=== PATIENT | male | born 1955 | race Caucasian/White ===

== ENCOUNTER 2017-07-08 13:35 | Observation (INO) | payer BC ==
[2017-07-08] MEDS ORDERED: Nitroglycerin 0.4 MG Tab.SL SL PRN (13:36)
--- NOTE | 2017-07-08 13:38 | EDM.PDOC ---
ED HPI GENERAL MEDICAL PROBLEM - General Stated Complaint: CHEST PAIN Time Seen by Provider: 07/08/17 13:36 - History of Present Illness INITIAL COMMENTS - FREE TEXT/NARRATIVE: HISTORY AND PHYSICAL: History of present illness: Patient is 61-year-old white male history coronary artery disease including coronary bypass surgery who presents with midsternal chest pain that started after he was shoveling with associated shortness of breath he denies diaphoresis nausea or vomiting his pain is improved dramatically since having stopped shelving but he still does have some mild sternal chest discomfort he also still complains of mild shortness of breath. Review of systems: As per history of present illness and below otherwise all systems reviewed and negative. Past medical history: As per history of present illness and as reviewed below otherwise noncontributory. Surgical history: As per history of present illness and as reviewed below otherwise noncontributory. Social history: No reported history of drug or alcohol abuse. Family history: As per history of present illness and as reviewed below otherwise noncontributory. Physical exam: HEENT: Atraumatic, normocephalic, pupils reactive, negative for conjunctival pallor or scleral icterus, mucous membranes moist, throat clear, neck supple, nontender, trachea midline. Lungs: Clear to auscultation, breath sounds equal bilaterally, chest nontender. Heart: S1S2, regular, negative for clicks, rubs, or JVD. Abdomen: Soft, nondistended, nontender. Negative for masses or hepatosplenomegaly. Negative for costovertebral tenderness. Pelvis: Stable nontender. Genitourinary: Deferred. Rectal: Deferred. Extremities: Atraumatic, negative for cords or calf pain. Neurovascular unremarkable. Neuro: Awake, alert, oriented. Cranial nerves II through XII unremarkable. Cerebellum unremarkable. Motor and sensory unremarkable throughout. Exam nonfocal. Diagnostics: CBC CMP troponin PT/INR BNP chest x-ray EKG Therapeutics: IV O2 monitor sublingual nitroglycerin patient is ready taken aspirin this a.m. Impression: #1 chest pain #2 history coronary artery disease Definitive disposition and diagnosis as appropriate pending reevaluation and review of above. - Related Data Allergies Allergy/AdvReac Type Severity Reaction Status Date / Time No Known Allergies Allergy Verified 07/08/17 13:51 Home Meds: Home Meds Allopurinol [Zyloprim] 100 mg PO DAILY 12/12/15 [History] Indomethacin [Indocin] 50 mg PO BIDMEALS 12/12/15 [History] Metoprolol Succinate [Toprol XL] 25 mg PO DAILY 12/12/15 [History] atorvaSTATin [Lipitor] 80 mg PO DAILY 12/12/15 [History] Past Medical History Cardiovascular History: Reports: High Cholesterol, Hypertension Neurological History: Reports: CVA - Past Surgical History Musculoskeletal Surgical History: Reports: Knee Replacement, Other (See Below) Social & Family History - Family History Family Medical History: Noncontributory - Tobacco Use Smoking Status *Q: Current Every Day Smoker Years of Tobacco use: 45 Packs/Tins Daily: 0.5 - Recreational Drug Use Recreational Drug Use: No ED ROS GENERAL - Review of Systems Review Of Systems: ROS reveals no pertinent complaints other than HPI. ED EXAM, GENERAL - Physical Exam Exam: See Below (See dictation) Course - Vital Signs Last Recorded V/S: Last Vital Signs Temp 37.0 C 07/08/17 13:35 Pulse 97 07/08/17 14:01 Resp 18 07/08/17 14:01 BP 136/91 H 07/08/17 14:01 Pulse Ox 98 07/08/17 14:01 - Orders/Labs/Meds Orders: Active Orders 24 hr Category Date Time Status Cardiac Monitoring [RC] . DIRECTED Care 07/08/17 13:37 Active EKG Documentation Completion [RC] STAT Care 07/08/17 13:36 Active Oxygen Therapy, ED [RC] ASDIRECTED Care 07/08/17 13:37 Active Nitroglycerin [Nitrostat] Med 07/08/17 13:36 Active 0.4 mg SL Q5M PRN Medication Orders Nitroglycerin (Nitrostat) 0.4 mg SL Q5M PRN PRN Reason: Chest Pain Last Admin: 07/08/17 13:56 Dose: 0.4 mg Labs: Laboratory Tests 07/08/17 07/08/17 07/08/17 Range/Units 13:14 13:45 13:45 WBC 10.28 (4.0-11.0) K/uL RBC 4.86 (4.50-5.90) M/uL Hgb 14.7 (13.0-17.0) g/dL Hct 43.3 (38.0-50.0) % MCV 89.1 (80.0-98.0) fL MCH 30.2 (27.0-32.0) pg MCHC 33.9 (31.0-37.0) g/dL RDW Std Deviation 44.8 (28.0-62.0) fl RDW Coeff of [place] 14 (11.0-15.0) % Plt Count 242 (150-400) K/uL MPV 10.30 (7.40-12.00) fL Neut % (Auto) 64.0 (48.0-80.0) % Lymph % (Auto) 25.9 (16.0-40.0) % [place] % (Auto) 7.4 (0.0-15.0) % Eos % (Auto) 1.8 (0.0-7.0) % Baso % (Auto) 0.9 (0.0-1.5) % Neut # (Auto) 6.6 H (1.4-5.7) K/uL Lymph # (Auto) 2.7 H (0.6-2.4) K/uL [place] # (Auto) 0.8 (0.0-0.8) K/uL Eos # (Auto) 0.2 (0.0-0.7) K/uL Baso # (Auto) 0.1 (0.0-0.1) K/uL Nucleated RBC % 0.0 /100WBC Nucleated RBCs # 0 K/uL INR Sodium 143 (136-146) mmol/L Potassium 4.1 (3.5-5.1) mmol/L Chloride 110 (98-110) mmol/L Carbon Dioxide 22 (21-31) mmol/L BUN 20 (6.0-23.0) mg/dL Creatinine 1.7 H (0.6-1.5) mg/dL Est Cr Clr Drug Dosing 45.05 mL/min Estimated GFR (MDRD) 41.0 ml/min Glucose 91 (60-110) mg/dL Calcium 9.8 (8.8-10.8) mg/dL Total Bilirubin 0.7 (0.1-1.5) mg/dL AST 23 (5-40) IU/L ALT 25 (8-54) IU/L Alkaline Phosphatase 105 (40-150) Troponin I < 0.10 (0.0-0.29) NG/ML B-Natriuretic Peptide 42 (<100) PG/ML Total Protein 7.4 (6.0-8.0) g/dL Albumin 4.5 (3.4-4.8) g/dL Globulin 2.9 (2.0-3.5) g/dL Albumin/Globulin Ratio 1.6 (1.3-2.8) 07/08/17 Range/Units 13:45 WBC (4.0-11.0) K/uL RBC (4.50-5.90) M/uL Hgb (13.0-17.0) g/dL Hct (38.0-50.0) % MCV (80.0-98.0) fL MCH (27.0-32.0) pg MCHC (31.0-37.0) g/dL RDW Std Deviation (28.0-62.0) fl RDW Coeff of [place] (11.0-15.0) % Plt Count (150-400) K/uL MPV (7.40-12.00) fL Neut % (Auto) (48.0-80.0) % Lymph % (Auto) (16.0-40.0) % [place] % (Auto) (0.0-15.0) % Eos % (Auto) (0.0-7.0) % Baso % (Auto) (0.0-1.5) % Neut # (Auto) (1.4-5.7) K/uL Lymph # (Auto) (0.6-2.4) K/uL [place] # (Auto) (0.0-0.8) K/uL Eos # (Auto) (0.0-0.7) K/uL Baso # (Auto) (0.0-0.1) K/uL Nucleated RBC % /100WBC Nucleated RBCs # K/uL INR 0.97 Sodium (136-146) mmol/L Potassium (3.5-5.1) mmol/L Chloride (98-110) mmol/L Carbon Dioxide (21-31) mmol/L BUN (6.0-23.0) mg/dL Creatinine (0.6-1.5) mg/dL Est Cr Clr Drug Dosing mL/min Estimated GFR (MDRD) ml/min Glucose (60-110) mg/dL Calcium (8.8-10.8) mg/dL Total Bilirubin (0.1-1.5) mg/dL AST (5-40) IU/L ALT (8-54) IU/L Alkaline Phosphatase (40-150) Troponin I (0.0-0.29) NG/ML B-Natriuretic Peptide (<100) PG/ML Total Protein (6.0-8.0) g/dL Albumin (3.4-4.8) g/dL Globulin (2.0-3.5) g/dL Albumin/Globulin Ratio (1.3-2.8) Meds: Medications Generic Name Dose Route Start Last Admin Trade Name Freq PRN Reason Stop Dose Admin Nitroglycerin 0.4 mg 07/08/17 13:36 07/08/17 13:56 Nitrostat SL 0.4 mg Q5M PRN Administration Chest Pain Discontinued Medications Generic Name Dose Route Start Last Admin Trade Name Freq PRN Reason Stop Dose Admin Aspirin 324 mg 07/08/17 13:49 07/08/17 13:56 Aspirin PO 07/08/17 13:50 324 mg ONETIME ONE Administration Departure - Departure Time of Disposition: 14:39 Disposition: Refer to Observation Condition: Good Clinical Impression: Chest pain - Discharge Information
[2017-07-08] MEDS ORDERED: Aspirin 81 MG Tab.Chew PO ONE (13:49)
--- NOTE | 2017-07-08 14:25 | CR ---
EXAMINATION: Portable chest radiograph. HISTORY: Chest pain. Comparison: 12/12/2015. FINDINGS: The trachea is midline. The cardiomediastinal silhouette is within normal limits. No pulmonary infilt rates, effusions or pneumothorax. Mild interstitial prominence most prominent within the left lung ba se, grossly unchanged. Osseous structures appear unremarkable. Median sternotomy wires are noted. IMPRESSION: No definite acute cardiopulmonary process.
[2017-07-08 14:26] LABS: CHLORIDE,CL 110 mmol/L (98-110); SODIUM,NA 143 mmol/L (136-146)
[2017-07-08] MEDS ORDERED: Sodium Chloride 0.9% 10 ML Syringe FLUSH PRN (16:25)
[2017-07-08] MEDS ORDERED: Acetaminophen 325 MG Tab PO PRN (16:25)
[2017-07-08] MEDS ORDERED: Morphine 2 MG/ML Syringe IVPUSH PRN (16:25)
[2017-07-08] MEDS ORDERED: Sodium Chloride 0.9% 2.5 ML Syringe FLUSH PRN (16:25)
[2017-07-08] MEDS ORDERED: Ondansetron 4 MG/2 ML SDV IVPUSH PRN (16:25)
--- NOTE | 2017-07-08 16:51 | PCM.HP ---
H&P History of Present Illness - General Date of Service: 07/08/17 Admit Problem/Dx: Admission Diagnosis/Problem Admission Diagnosis/Problem Chest pain Source of Information: Patient History Limitations: Reports: No Limitations - History of Present Illness Initial Comments - Free Text/Narative: This is a 61-year-old male who is presenting secondary to acute chest pain that started this morning. 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 Patient became concerned secondary to the fact that he had a quadruple bypass 3 years back secondary to an [place]. Patient has not had any NV related concerns since the CABG. He follows up with his primary care physician in [place] time male. Patient currently is not having any chest pain. Patient has not had any chest pain on exertion prior to this event. Patient stated that along with the chest pain he was having difficulty breathing/ shortness of breath which became concerning. Patient in the ER had troponins drawn 1 which is negative, he was given Nitrostat for symptomatic pain control. Patient is being admitted to observation secondary to ACS rule out. Onset of Symptoms: Reports: Today, Sudden chest Pain Score (Numeric/FACES): 0 - Related Data Allergies/Adverse Reactions: Allergies Allergy/AdvReac Type Severity Reaction Status Date / Time No Known Allergies Allergy Verified 07/08/17 13:51 Home Medications: Home Meds Allopurinol [Zyloprim] 100 mg PO DAILY 12/12/15 [History] Indomethacin [Indocin] 50 mg PO BIDMEALS 12/12/15 [History] Metoprolol Succinate [Toprol XL] 25 mg PO DAILY 12/12/15 [History] atorvaSTATin [Lipitor] 80 mg PO DAILY 12/12/15 [History] Aspirin [Children's Aspirin] 81 mg PO DAILY 07/08/17 [History] Past Medical History Cardiovascular History: Reports: Bypass, CAD, High Cholesterol, Hypertension Neurological History: Reports: CVA - Infectious Disease History Infectious Disease History: Reports: None - Past Surgical History HEENT Surgical History: Reports: None Other HEENT Surgeries/Procedures: salivary gland removal GI Surgical History: Reports: None Endocrine Surgical History: Reports: None Musculoskeletal Surgical History: Reports: Knee Replacement, Other (See Below) Social & Family History - Family History Family Medical History: Noncontributory HEENT: Reports: None - Tobacco Use Smoking Status *Q: Former Smoker Years of Tobacco use: 45 Packs/Tins Daily: 0.5 Used Tobacco, but Quit: Yes Month Tobacco Last Used: 2 years ago Second Hand Smoke Exposure: No - Caffeine Use Caffeine Use: Reports: Coffee - Recreational Drug Use Recreational Drug Use: No H&P Review of Systems - Review of Systems: Review Of Systems: ROS reveals no pertinent complaints other than HPI. General: Reports: No Symptoms HEENT: Reports: No Symptoms Cardiovascular: Reports: Chest Pain Gastrointestinal: Reports: No Symptoms Musculoskeletal: Reports: No Symptoms Skin: Reports: No Symptoms Exam - Exam Exam: See Below - Vital Signs Vital Signs: Last Vital Signs Temp 37.0 C 07/08/17 13:35 Pulse 88 07/08/17 15:02 Resp 18 07/08/17 15:02 BP 144/95 H 07/08/17 15:02 Pulse Ox 96 07/08/17 15:02 Weight: 90.1 kg - Exam Quality Assessment: Supplemental Oxygen General: Alert, Oriented, Cooperative HEENT: Conjunctiva Clear Neck: Supple Lungs: Clear to Auscultation, Normal Respiratory Effort Cardiovascular: Regular Rate, Regular Rhythm, Other GI/Abdominal Exam: Normal Bowel Sounds Extremities: Normal Inspection, Normal Range of Motion - Patient Data Result Diagrams: 07/08/17 13:14 07/08/17 13:45 *Q Meaningful Use (ADM) - VTE *Q VTE Criteria *Q: - Stroke *Q Stroke Criteria *Q: - AMI *Q AMI Criteria *Q: - Problem List (1) Chest pain SNOMED Code(s): 41544265 ICD Code: R07.9 - CHEST PAIN, UNSPECIFIED Status: Acute Current Visit: Yes (2) Acute coronary syndrome SNOMED Code(s): 520984844 ICD Code: I24.9 - ACUTE ISCHEMIC HEART DISEASE, UNSPECIFIED Status: Acute Current Visit: No Problem List Initiated/Reviewed/Updated: Yes Orders Last 24hrs: Active Orders 24 hr Category Date Time Status Patient Status [ADT] Routine ADT 07/08/17 16:25 Ordered Antiembolic Devices [RC] PER UNIT ROUTINE Care 07/08/17 16:28 Ordered Cardiac Monitoring [RC] CONTINUOUS Care 07/08/17 16:27 Ordered Height and Weight [RC] UPON Care 07/08/17 16:25 Ordered Intake and Output [RC] QSHIFT Care 07/08/17 16:27 Ordered Notify Provider Vital Signs [RC] ASDIRECTED Care 07/08/17 16:27 Ordered Oxygen Therapy [RC] PRN Care 07/08/17 16:25 Ordered Pulse Oximetry [RC] CONTINUOUS Care 07/08/17 16:27 Ordered Up With Assistance [RC] ASDIRECTED Care 07/08/17 16:25 Ordered VTE/DVT Education [RC] PER UNIT ROUTINE Care 07/08/17 16:25 Ordered Vital Signs [RC] Q4H Care 07/08/17 16:25 Ordered Heart Healthy Diet [DIET] Diet 07/08/17 Breakfast Ordered CBC WITH AUTO DIFF [HEME] AM Lab 07/09/17 05:11 Ordered TROPONIN I [CHEM] Q6H Lab 07/08/17 19:45 Ordered TROPONIN I [CHEM] Q6H Lab 07/09/17 01:45 Ordered Acetaminophen [Tylenol] Med 07/08/17 16:25 Ordered 650 mg PO Q4H PRN Enoxaparin [Lovenox] Med 07/08/17 16:30 Ordered 40 mg SUBCUT DAILY Morphine Med 07/08/17 16:25 Ordered 2 mg IVPUSH Q2H PRN Ondansetron [Zofran] Med 07/08/17 16:25 Ordered 4 mg IVPUSH Q4H PRN Sodium Chloride 0.9% @ 125 MLS/HR (1000ml) Med 07/08/17 16:30 Ordered Sodium Chloride 0.9% [Normal Saline] 1,000 ml IV ASDIRECTED Sodium Chloride 0.9% [Saline Flush] Med 07/08/17 16:25 Ordered 10 ml FLUSH ASDIRECTED PRN Sodium Chloride 0.9% [Saline Flush] Med 07/08/17 16:25 Ordered 2.5 ml FLUSH ASDIRECTED PRN Peripheral IV Insertion Adult [OM.PC] Routine Oth 07/08/17 16:25 Ordered Saline Lock Insert [OM.PC] Routine Oth 07/08/17 16:25 Ordered Sequential Compression Device [OM.PC] Per Unit Routine Oth 07/08/17 16:28 Ordered Resuscitation Status Routine Resus Stat 07/08/17 16:25 Ordered Medication Orders Acetaminophen (Tylenol) 650 mg PO Q4H PRN PRN Reason: Pain (Mild 1-3)/fever Enoxaparin Sodium (Lovenox) 40 mg SUBCUT DAILY [facility] Sodium Chloride (Normal Saline) 1,000 mls @ 125 mls/hr IV ASDIRECTED [place] Morphine Sulfate (Morphine) 2 mg IVPUSH Q2H PRN PRN Reason: Pain (severe 7-10) Stop: 07/09/17 16:29 Nitroglycerin (Nitrostat) 0.4 mg SL Q5M PRN PRN Reason: Chest Pain Last Admin: 07/08/17 13:56 Dose: 0.4 mg Ondansetron HCl (Zofran) 4 mg IVPUSH Q4H PRN PRN Reason: Nausea/Vomiting Sodium Chloride (Saline Flush) 10 ml FLUSH ASDIRECTED PRN PRN Reason: Keep Vein Open Sodium Chloride (Saline Flush) 2.5 ml FLUSH ASDIRECTED PRN PRN Reason: Keep Vein Open Assessment/Plan Comment:: This is a 61-year-old male with presenting for acute coronary syndrome rule out secondary to chest pain sharp in nature substernal after exertion that is nonpleuritic in nature and is nonradiating. Patient has a significant past medical history of a CABG 2 years prior secondary to an NV most likely etiology for this chest pain is noncardiac in nature likely musculoskeletal. Assessment/plan: #1 sharp substernal chest pain, shortness of breath secondary to exertion acute coronary syndrome rule out - Troponins 3, CBC, CMP in the a.m., cardiac monitoring -If troponins are negative 3, discharge the patient with follow-up with a PCP here at the [facility] clinic, as well as possible cardiac stress monitoring for assessment of stable angina. Patient is admitted for observation likely disposition tomorrow after troponins 3 negative.
[2017-07-08] MEDS: Sodium Chloride 0.9% 1,000 ML IV SCH (17:44)
[2017-07-08] MEDS ORDERED: Enoxaparin 40 MG/0.4 ML Syringe SUBCUT SCH (18:00)
[2017-07-09] MEDS: Sodium Chloride 0.9% 1,000 ML IV SCH (00:51)
[2017-07-09 07:24] VITALS: BP 155/91
[2017-07-09] MEDS ORDERED: atorvaSTATin 40 MG Tab PO SCH (09:00)
[2017-07-09] MEDS ORDERED: Aspirin 81 MG Tab.Chew PO SCH (09:00)
[2017-07-09] MEDS ORDERED: Atenolol 25 MG Tab PO SCH (09:00)
--- NOTE | 2017-07-09 10:18 | PCM.DCSUM1 ---
Discharge Summary - Hospital Course Brief History: This is a 61-year-old male who is presenting secondary to acute chest pain that started this morning. 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 Patient became concerned secondary to the fact that he had a quadruple bypass 3 years back secondary to an [place]. Patient has not had any [place] related concerns since the CABG. He follows up with his primary care physician in [place]. Patient currently is not having any chest pain. Patient has not had any chest pain on exertion prior to this event. Patient stated that along with the chest pain he was having difficulty breathing /shortness of breath which became concerning. Patient in the ER had troponins drawn 1 which is negative, he was given Nitrostat for symptomatic pain control. Patient is being admitted to observation secondary to ACS rule out. - Discharge Data Discharge Date: 07/09/17 Discharge Disposition: Home, Self-Care 01 Condition: Good - Discharge Diagnosis/Problem(s) (1) Chest pain SNOMED Code(s): 48188659 ICD Code: R07.9 - CHEST PAIN, UNSPECIFIED Status: Acute (2) Dyslipidemia SNOMED Code(s): 011582091 ICD Code: E78.5 - HYPERLIPIDEMIA, UNSPECIFIED Status: Chronic (3) HTN (hypertension) SNOMED Code(s): 46326293 ICD Code: I10 - ESSENTIAL (PRIMARY) HYPERTENSION Status: Chronic Qualifiers: Hypertension type: essential hypertension Qualified Code(s): I10 - Essential (primary) hypertension (4) CAD (coronary artery disease) SNOMED Code(s): 65630445 ICD Code: I25.10 - ATHSCL HEART DISEASE OF [place] CORONARY ARTERY W/O ANG PCTRS Status: Chronic (5) Hx of CABG SNOMED Code(s): 328919918 ICD Code: Z95.1 - PRESENCE OF AORTOCORONARY BYPASS GRAFT Status: Chronic - Patient Instructions Diet: Heart Healthy Diet Activity: No Strenuous Activities Showering/Bathing: May Shower Notify Provider of: Fever, Increased Pain, Swelling and Redness, Drainage, Nausea and/or Vomiting - Discharge Plan Home Medications: Home Meds Allopurinol [Zyloprim] 300 mg PO DAILY 12/12/15 [History] atorvaSTATin [Lipitor] 40 mg PO DAILY 12/12/15 [History] Aspirin [Children's Aspirin] 81 mg PO DAILY 07/08/17 [History] Atenolol 25 mg PO DAILY 07/09/17 [History] Patient Handouts: Chest Wall Pain, [id number] Referrals: PCP,Not In Area [Ordering Only Provider] - (Has follow up arranged with PCP and cardiology in [place] for July 23) - Discharge Summary/Plan Comment DC Time >30 min.: No Discharge Summary/Plan Comment: Discharge Diagnoses: Atypical chest pain Dyslipidemia HTN CAD Hx CABG Sudhakar was admitted and observed overnight. Telemetry shows no signs of acute ischemia and troponins x 3 have been negative. he has had no further chest pain. No palpitations or SOB. He is ready to be discharged home. Will continue all home medications as previously prescribed. He has already arranged appointments with his PCP and [facility] in [place], [place] for July 23. he is to follow through with these appointments and it was suggested to him to have stress test as well. He is to return to ED or clinic if concerns should arise. - General Info Date of Service: 07/09/17 Admission Dx/Problem (Free Text: Admission Diagnosis/Problem Admission Diagnosis/Problem Chest pain Subjective Update: Doing well this morning. No chest pain, SOB or palpitations. Asking if it is ok to be discharge home. Functional Status: Reports: Pain Controlled, Tolerating Diet, Ambulating, Urinating - Review of Systems General: Reports: No Symptoms. Denies: Fever HEENT: Reports: No Symptoms. Denies: Sinus Congestion, Sore Throat Pulmonary: Reports: No Symptoms. Denies: Shortness of Breath, Cough, Sputum, Hemoptysis, Wheezing Cardiovascular: Reports: No Symptoms. Denies: Chest Pain, Dyspnea on Exertion, Edema Gastrointestinal: Reports: No Symptoms. Denies: Abdominal Pain, Nausea, Vomiting Genitourinary: Reports: No Symptoms. Denies: Dysuria, Frequency Musculoskeletal: Reports: No Symptoms Neurological: Reports: No Symptoms. Denies: Confusion Psychiatric: Reports: No Symptoms. Denies: Confusion - Patient Data Vitals - Most Recent: Last Vital Signs Temp 96.6 F 07/09/17 07:22 Pulse 96 07/09/17 08:36 Resp 20 07/09/17 07:22 BP 155/91 H 07/09/17 08:36 Pulse Ox 97 07/09/17 07:22 Weight - Most Recent: 90.1 kg I&O - Last 24 hours: Intake & Output 07/08/17 07/09/17 07/09/17 22:59 06:59 14:59 Intake Total 0 1886 120 Output Total 200 950 Balance -200 936 120 Lab Results - Last 24 hrs: Laboratory Results - last 24 hr 07/08/17 07/09/17 07/09/17 Range/Units 19:50 01:40 01:40 WBC 8.26 (4.0-11.0) K/uL RBC 4.76 (4.50-5.90) M/uL Hgb 14.3 (13.0-17.0) g/dL Hct 42.6 (38.0-50.0) % MCV 89.5 (80.0-98.0) fL MCH 30.0 (27.0-32.0) pg MCHC 33.6 (31.0-37.0) g/dL RDW Std Deviation 44.7 (28.0-62.0) fl RDW Coeff of [place] 14 (11.0-15.0) % Plt Count 206 (150-400) K/uL MPV 9.70 (7.40-12.00) fL Neut % (Auto) 47.8 L (48.0-80.0) % Lymph % (Auto) 38.9 (16.0-40.0) % Bent % (Auto) 8.5 (0.0-15.0) % Eos % (Auto) 4.1 (0.0-7.0) % Baso % (Auto) 0.7 (0.0-1.5) % Neut # (Auto) 4.0 (1.4-5.7) K/uL Lymph # (Auto) 3.2 H (0.6-2.4) K/uL Bent # (Auto) 0.7 (0.0-0.8) K/uL Eos # (Auto) 0.3 (0.0-0.7) K/uL Baso # (Auto) 0.1 (0.0-0.1) K/uL Nucleated RBC % 0.0 /100WBC Nucleated RBCs # 0 K/uL Sodium (136-146) mmol/L Potassium (3.5-5.1) mmol/L Chloride (98-110) mmol/L Carbon Dioxide (21-31) mmol/L BUN (6.0-23.0) mg/dL Creatinine (0.6-1.5) mg/dL Est Cr Clr Drug Dosing mL/min Estimated GFR (MDRD) ml/min Glucose (60-110) mg/dL Calcium (8.8-10.8) mg/dL Troponin I < 0.10 < 0.10 (0.0-0.29) NG/ML 07/09/17 Range/Units 01:40 WBC (4.0-11.0) K/uL RBC (4.50-5.90) M/uL Hgb (13.0-17.0) g/dL Hct (38.0-50.0) % MCV (80.0-98.0) fL MCH (27.0-32.0) pg MCHC (31.0-37.0) g/dL RDW Std Deviation (28.0-62.0) fl RDW Coeff of [place] (11.0-15.0) % Plt Count (150-400) K/uL MPV (7.40-12.00) fL Neut % (Auto) (48.0-80.0) % Lymph % (Auto) (16.0-40.0) % Bent % (Auto) (0.0-15.0) % Eos % (Auto) (0.0-7.0) % Baso % (Auto) (0.0-1.5) % Neut # (Auto) (1.4-5.7) K/uL Lymph # (Auto) (0.6-2.4) K/uL Bent # (Auto) (0.0-0.8) K/uL Eos # (Auto) (0.0-0.7) K/uL Baso # (Auto) (0.0-0.1) K/uL Nucleated RBC % /100WBC Nucleated RBCs # K/uL Sodium 143 (136-146) mmol/L Potassium 4.9 (3.5-5.1) mmol/L Chloride 110 (98-110) mmol/L Carbon Dioxide 24 (21-31) mmol/L BUN 18 (6.0-23.0) mg/dL Creatinine 1.3 (0.6-1.5) mg/dL Est Cr Clr Drug Dosing 58.72 mL/min Estimated GFR (MDRD) 55.9 ml/min Glucose 91 (60-110) mg/dL Calcium 9.0 (8.8-10.8) mg/dL Troponin I (0.0-0.29) NG/ML Med Orders - Current: Current Medications Acetaminophen (Tylenol) 650 mg PO Q4H PRN PRN Reason: Pain (Mild 1-3)/fever Aspirin (Aspirin) 81 mg PO DAILY [facility] Last Admin: 07/09/17 08:30 Dose: 81 mg Atenolol (Tenormin) 25 mg PO DAILY [facility] Last Admin: 07/09/17 08:36 Dose: 25 mg Atorvastatin Calcium (Lipitor) 40 mg PO DAILY [facility] Last Admin: 07/09/17 08:35 Dose: 40 mg Enoxaparin Sodium (Lovenox) 40 mg SUBCUT Q24H [facility] Last Admin: 07/08/17 17:42 Dose: 40 mg Morphine Sulfate (Morphine) 2 mg IVPUSH Q2H PRN PRN Reason: Pain (severe 7-10) Nitroglycerin (Nitrostat) 0.4 mg SL Q5M PRN PRN Reason: Chest Pain Last Admin: 07/08/17 13:56 Dose: 0.4 mg Ondansetron HCl (Zofran) 4 mg IVPUSH Q4H PRN PRN Reason: Nausea/Vomiting Sodium Chloride (Saline Flush) 10 ml FLUSH ASDIRECTED PRN PRN Reason: Keep Vein Open Sodium Chloride (Saline Flush) 2.5 ml FLUSH ASDIRECTED PRN PRN Reason: Keep Vein Open Discontinued Medications Aspirin (Aspirin) 324 mg PO ONETIME ONE Stop: 07/08/17 13:50 Last Admin: 07/08/17 13:56 Dose: 324 mg Sodium Chloride (Normal Saline) 1,000 mls @ 125 mls/hr IV ASDIRECTED [facility] Last Admin: 07/09/17 00:51 Dose: 125 mls/hr - Exam General: Reports: Alert, Oriented, Cooperative, No Acute Distress Neck: Reports: Supple Lungs: Reports: Clear to Auscultation, Normal Respiratory Effort Cardiovascular: Reports: Regular Rate, Regular Rhythm GI/Abdominal Exam: Normal Bowel Sounds, Soft, Non-Tender, No Organomegaly, No Distention, No Abnormal Bruit, No Mass, Pelvis Stable (Male) Exam: No Hernia, Normal Inspection, Normal Prostate, Circumcised Extremities: Normal Inspection, Normal Range of Motion, Non-Tender, No Pedal Edema, Normal Capillary Refill Neurological: Reports: No New Focal Deficit Psy/Mental Status: Reports: Alert, Normal Affect, Normal Mood *Q Meaningful Use (DIS) - VTE *Q VTE Criteria *Q: - Stroke *Q Stroke Criteria *Q: - AMI *Q AMI Criteria *Q:
== END 2017-07-09 10:05 | disposition home or self-care (01) ==
LOC: MW.ED 13:35 → MW.MS 14:41
PROVIDERS: ADMIT Internal Medicine; ATTEND Internal Medicine
DX: R07.2 Precordial pain (principal); E78.5 Hyperlipidemia, unspecified; I10 Essential (primary) hypertension; I25.10 Atherosclerotic heart disease of native coronary artery without angina pectoris; I25.2 Old myocardial infarction; E78.00 Pure hypercholesterolemia, unspecified; Z87.891 Personal history of nicotine dependence; Z79.82 Long term (current) use of aspirin; Z79.899 Other long term (current) drug therapy; Z95.1 Presence of aortocoronary bypass graft; Z96.659 Presence of unspecified artificial knee joint; Z98.890 Other specified postprocedural states
CPT/HCPCS: 36415; 71045; 80048; 80053; 83880; 84484; 85025; 85610; 93005; 96360; 96361; 96372; 99285; A9270; G0378; J1650; J7040; 99283